=== PATIENT | female | born 1950 | race Caucasian/White ===

== ENCOUNTER → 2020-10-23 | Outpatient (CLI) | payer MEDICARE ==
[~2020-10-23] MED LIST: COZAAR 25 MG TA25 MG PO; FLOMAX0.4 MG PO; HYDROCODONE-AP1 EAC6 PO; ZOFRAN ODT4 MG PO
== END ==
LOC: M.RAD 10-11 14:28
PROVIDERS: ATTEND Internal Medicine
DX: Z12.31 Encounter for screening mammogram for malignant neoplasm of breast (principal); N95.1 Menopausal and female climacteric states; M85.851 Other specified disorders of bone density and structure, right thigh